=== PATIENT | female | born 1950 | race Caucasian/White ===

== ENCOUNTER → 2017-08-31 | Outpatient (CLI) | payer MEDICARE ==
--- NOTE | 2017-08-31 10:52 | REPMRS ---
Patient History The patient states she has not had a clinical breast exam in over a year. Family history of breast cancer in mother at age 70. Digital Mammo Diagnostic Bilateral: August 31, 2017 - Exam #: [id number] Bilateral CC and MLO view(s) were taken. Technologist: Krystin Cross, Technologist Prior study comparison: July 20, 2016, bilateral digital mammo screening bilat performed at [facility]. December 17, 2014, right breast digital mammo diagnostic unilateral performed at [facility]. FINDINGS: The breast tissue is heterogeneously dense. This may lower the sensitivity of mammography. There has been no change in the appearance of the mammogram from the prior studies. There is a moderate amount of residual fibroglandular tissue which is fairly symmetric. There is no interval development of dominant mass, areas of architectural distortion, or clustered microcalcification typical of malignancy. ASSESSMENT: BI-RADS/ACR category 1 mammogram. Negative. Recommendation Routine screening mammogram in 1 year (for women over age 40). This mammogram was interpreted with the aid of an FDA-approved computer-aided dectection system. Electronically Signed By: Dandre Burton MD 08/31/17 1854
== END ==
LOC: M RAD 10:18
PROVIDERS: ATTEND Family Medicine
DX: Z12.39 Encounter for other screening for malignant neoplasm of breast (principal); N63.0 Unspecified lump in unspecified breast

== ENCOUNTER → 2017-09-18 | Outpatient (CLI) | payer MEDICARE ==
--- NOTE | 2017-09-18 11:26 | REP ---
LEFT KNEE, FIVE VIEWS: HISTORY: Injury. There is no acute fracture or dislocation. There is narrowing of the joint spaces. An osteophyte is present on the patella. A small suprapatellar joint effusion is present. IMPRESSION: Degenerative change as described above. Signed by Angel Luis Suh MD 09/18/2017 11:47 A
== END ==
LOC: M RAD 10:19
PROVIDERS: ATTEND Physician Assistant Medical
DX: M25.562 Pain in left knee (principal); M79.605 Pain in left leg

== ENCOUNTER → 2018-03-16 | Outpatient (REF) | payer MEDICARE | LOC: M LAB REF 14:35 | DX: L82.1 Other seborrheic keratosis (principal) | CPT/HCPCS: 88305 ==

== ENCOUNTER → 2018-04-27 | Outpatient (CLI) | payer MEDICARE ==
[2018-04-27 08:51] LABS: HEMATOCRIT 42.5 % (36.0-47.0); MEAN CORPUSCULAR HEMOGLOBIN 29.9 pg (27.0-33.0); MEAN CORPUSCULAR HGB CONC 32.9 g/dl (32.0-36.5); MEAN CORPUSCULAR VOLUME 90.6 fl (80.0-96.0); PLATELET COUNT, AUTOMATED 249 10^3/uL (150-450); RED BLOOD COUNT 4.69 10^6/uL (4.00-5.40); RED CELL DISTRIBUTION WIDTH 12.8 % (11.5-14.5)
[2018-04-27 09:03] LABS: APPEARANCE, URINE CLEAR (CLEAR); BACTERIA, URINE AUTO NEGATIVE (NEGATIVE); BILIRUBIN, URINE AUTO NEGATIVE (NEGATIVE); BLOOD, URINE BLOOD NEGATIVE (NEGATIVE); COLOR, URINE STRAW (YELLOW); GLUCOSE, URINE (UA) AUTO NEGATIVE (NEGATIVE); KETONE, URINE AUTO NEGATIVE (NEGATIVE); LEUKOCYTE ESTERASE, URINE AUTO NEGATIVE (NEGATIVE); MUCUS, URINE SMALL (NEGATIVE); NITRITE, URINE AUTO NEGATIVE (NEGATIVE); PROTEIN, URINE AUTO NEGATIVE (NEGATIVE); RBC, URINE AUTO 2 /HPF (0-3); SPECIFIC GRAVITY URINE AUTO 1.005 (1.002-1.035); SQUAMOUS EPITHELIAL CELL UR AU 0 /HPF (0-6); UROBILINOGEN, URINE AUTO 0.2 mg/dL (0.0-2.0); WBC, URINE AUTO 1 /HPF (0-3)
[2018-04-27 09:29] LABS: ALBUMIN 3.7 GM/DL (3.2-5.2); ALBUMIN/GLOBULIN RATIO 1.16 (1.00-1.93); ALKALINE PHOSPHATASE 69 U/L (45-117); ALT/SGPT 17 U/L (12-78); ANION GAP 8 MEQ/L (8-16); AST/SGOT 14 U/L (7-37); BILIRUBIN,TOTAL 0.5 MG/DL (0.2-1.0); BLOOD UREA NITROGEN 17 MG/DL (7-18); CALCIUM LEVEL 9.3 MG/DL (8.8-10.2); CARBON DIOXIDE LEVEL 28 MEQ/L (21-32); CHLORIDE LEVEL 108 MEQ/L (98-107); CHOLESTEROL LEVEL 256 MG/DL (<200); CHOLESTEROL RISK RATIO 3.324 (<5); CREATININE FOR GFR 0.86 MG/DL (0.55-1.30); GLOMERULAR FILTRATION RATE > 60.0 (>45); GLUCOSE, FASTING 93 MG/DL (70-100); HDL CHOLESTEROL 77 MG/DL (>40); IRON (FE) 67 UG/DL (50-170); LDL CHOLESTEROL 165.8 MG/DL (<100); NON-HDL-C 179 MG/DL; PERCENT SATURATION 23.9 % (13.2-45.0); POTASSIUM SERUM 4.1 MEQ/L (3.5-5.1); SODIUM LEVEL 144 MEQ/L (136-145); TOTAL IRON BINDING CAPACITY 280 UG/DL (250-450); TOTAL PROTEIN 6.9 GM/DL (6.4-8.2); TRIGLYCERIDES LEVEL 66 MG/DL (<150)
[2018-04-27 12:22] LABS: TOTAL 25(OH) VITAMIN D 46.3 NG/ML (30.0-100.0)
== END ==
LOC: M LAB 08:05
DX: D64.9 Anemia, unspecified (principal); R53.83 Other fatigue; E03.9 Hypothyroidism, unspecified; Z79.899 Other long term (current) drug therapy
CPT/HCPCS: 71046

== ENCOUNTER 2018-10-18 06:34 | Day surgery (SDC) | payer MEDICARE ==
[~2018-10-18] VITALS: Ht 152.4 cm; Wt 53.5 kg
[~2018-10-18 06:34] MED LIST: ASPI81TA21 PO; NS 1,000 ML IV ONE; OSTETAB4 PO; SERT25TA88 PO; VITA400C7 PO; VITAD1000T PO; ZYRT10CA5 PO
--- NOTE | 2018-10-18 08:47 | ROOR ---
Patient Name: Amber Wolf Procedure Date: 10/18/2018 8:25 AM Date of : 1950 Age: 68 Room: [facility] Gender: Female Note Status: Finalized Procedure: Total Colonoscopy to Cecum Indications: Screening for colorectal malignant neoplasm Providers: Shorty Piper MD Referring MD: Fina SHOEMAKER DO Requesting Provider: Medicines: Monitored Anesthesia Care Complications: No immediate complications. Procedure: Pre-Anesthesia Assessment: - The heart rate, respiratory rate, oxygen saturations, blood pressure, adequacy of pulmonary ventilation, and response to care were monitored throughout the procedure. The Colonoscope was introduced through the anus and advanced to the cecum, identified by appendiceal orifice and ileocecal valve. The colonoscopy was performed without difficulty. The patient tolerated the procedure well. The quality of the bowel preparation was excellent. Findings: The perianal and digital rectal examinations were normal. Non-bleeding internal hemorrhoids were found during retroflexion. The hemorrhoids were small and Grade I (internal hemorrhoids that do not prolapse). No other significant abnormalities were identified in a careful examination of the remainder of the colon. The exam was otherwise without abnormality on direct and retroflexion views. Impression: - Non-bleeding internal hemorrhoids. - The examination was otherwise normal on direct and retroflexion views. - No specimens collected. - The exam was otherwise normal to the cecum. Recommendation: - Patient has a contact number available for emergencies. The signs and symptoms of potential delayed complications were discussed with the patient. Return to normal activities tomorrow. Written discharge instructions were provided to the patient. - High fiber diet. - Discharge patient to home. - Continue present medications. - Repeat colonoscopy for symptoms only. - Return to referring physician. - The findings and recommendations were discussed with the patient's family. Shorty Piper MD Shorty Piper MD 10/18/2018 8:47:24 AM This report has been signed electronically. Number of Addenda: 0 Note Initiated On: 10/18/2018 8:25 AM Estimated Blood Loss: Estimated blood loss: none.
[2018-10-18] MEDS ORDERED: LIDOCAINE 2% INJ 100 MG/5 ML SDV (FOR ANES.) As Ordered ONE (08:53)
[2018-10-18] MEDS ORDERED: PROPOFOL 200 MG/20 ML VIAL As Ordered ONE (08:53)
[2018-10-18 09:22] VITALS: BP 132/85
== END 2018-10-18 09:24 | disposition home or self-care (01) ==
LOC: M OPP 06:34
PROVIDERS: ATTEND Internal Medicine Gastroenterology
DX: Z12.11 Encounter for screening for malignant neoplasm of colon (principal); K64.8 Other hemorrhoids; Z79.82 Long term (current) use of aspirin; Z79.899 Other long term (current) drug therapy; J30.1 Allergic rhinitis due to pollen; J30.2 Other seasonal allergic rhinitis; Z88.8 Allergy status to other drugs, medicaments and biological substances

== ENCOUNTER → 2018-11-15 | Outpatient (CLI) | payer MEDICARE ==
[~2018-11-15] MED LIST changes: -NS 1,000 ML IV ONE
--- NOTE | 2018-11-15 11:54 | REPMRS ---
Patient History The patient states she has not had a clinical breast exam in over a year. Family history of breast cancer at age 70 in mother. Right breast bx w/benign results 3D TOMOSYNTHESIS WAS PERFORMED. Digital Mammo Screening Bilat: November 15, 2018 - Exam #: [id number] Bilateral CC and MLO view(s) were taken. Technologist: Krystin Cross Technologist Prior study comparison: August 31, 2017, digital mammo diagnostic bilateral performed at [facility]. July 20, 2016, bilateral digital mammo screening bilat performed at [facility]. FINDINGS: The breast tissue is heterogeneously dense. This may lower the sensitivity of mammography. There has been no change in the appearance of the mammogram from the prior studies. There is a moderate amount of residual fibroglandular tissue which is fairly symmetric. There is no interval development of dominant mass, areas of architectural distortion, or clustered microcalcification typical of malignancy. Assessment: BI-RADS/ACR category 1 mammogram. Negative Mammogram. Recommendation Routine screening mammogram in 1 year (for women over age 40). This mammogram was interpreted with the aid of an FDA-approved computer-aided dectection system. Electronically Signed By: Dandre Burton MD 11/15/18 [id number]
== END ==
LOC: M RAD 10:31
PROVIDERS: ATTEND Physician Assistant
DX: Z12.31 Encounter for screening mammogram for malignant neoplasm of breast (principal); Z80.3 Family history of malignant neoplasm of breast; N60.31 Fibrosclerosis of right breast; N60.32 Fibrosclerosis of left breast

== ENCOUNTER → 2018-12-06 | Outpatient (CLI) | payer MEDICARE ==
[2018-12-06 14:46] LABS: BASO # 0.1 10^3/uL (0.0-0.2); BASO % 1.1 % (0.0-1.0); EOS # 0.3 10^3/uL (0.0-0.50); EOS % 4.2 % (0.0-3.0); HEMATOCRIT 39.6 % (36.0-47.0); HEMOGLOBIN 12.7 g/dl (12.0-15.5); LYMPH # 1.7 10^3/uL (1.5-4.5); LYMPH % 28.4 % (24.0-44.0); MEAN CORPUSCULAR HEMOGLOBIN 29.1 pg (27.0-33.0); MEAN CORPUSCULAR HGB CONC 32.1 g/dl (32.0-36.5); MEAN CORPUSCULAR VOLUME 90.8 fl (80.0-96.0); MONO # 0.5 10^3/uL (0.0-0.8); MONO % 8.7 % (0.0-5.0); NEUTROPHILS # 3.5 10^3/uL (1.8-7.7); NEUTROPHILS % 57.3 % (36.0-66.0); PLATELET COUNT, AUTOMATED 256 10^3/uL (150-450); RED BLOOD COUNT 4.36 10^6/uL (4.00-5.40); WHITE BLOOD COUNT 6.1 10^3/uL (4.0-10.0)
--- NOTE | 2018-12-06 15:00 | REP ---
RIGHT HAND, FOUR VIEWS: HISTORY: Pain. There is no acute fracture or dislocation. The joint spaces are normal in appearance. IMPRESSION: There is no acute fracture or dislocation. Electronically Signed by Angel Luis Suh MD 12/06/2018 03:03 P
[2018-12-06 15:32] LABS: ALBUMIN 3.6 GM/DL (3.2-5.2); ALT/SGPT 17 U/L (12-78); BILIRUBIN,TOTAL 0.3 MG/DL (0.2-1.0); BLOOD UREA NITROGEN 16 MG/DL (7-18); CALCIUM LEVEL 8.5 MG/DL (8.8-10.2); CARBON DIOXIDE LEVEL 30 MEQ/L (21-32); CHLORIDE LEVEL 108 MEQ/L (98-107); CREATININE FOR GFR 0.73 MG/DL (0.55-1.30); GLOMERULAR FILTRATION RATE > 60.0 (>39); GLUCOSE, FASTING 97 MG/DL (70-100); POTASSIUM SERUM 4.1 MEQ/L (3.5-5.1); SODIUM LEVEL 145 MEQ/L (136-145); TOTAL 25(OH) VITAMIN D 38.2 NG/ML (30.0-100.0); TOTAL PROTEIN 6.2 GM/DL (6.4-8.2); VITAMIN B12 LEVEL 326 PG/ML
[2018-12-06 15:33] LABS: FOLATE 16.9 NG/ML
== END ==
LOC: M LAB 13:57
PROVIDERS: ATTEND Family Medicine
DX: G31.84 Mild cognitive impairment of uncertain or unknown etiology (principal); F41.1 Generalized anxiety disorder; M25.541 Pain in joints of right hand

== ENCOUNTER → 2019-02-06 | Outpatient (CLI) | payer MEDICARE ==
--- NOTE | 2019-02-06 09:24 | REP ---
CHEST, TWO VIEWS: Two views of the chest were performed and compared with prior study of 04/27/2018. There is no acute infiltrate. Heart is normal in size. Mediastinal silhouette is unchanged. There are degenerative changes of the spine. IMPRESSION: No acute pulmonary disease. Electronically Signed by Dandre Burton MD 02/07/2019 10:07 A
== END ==
LOC: M WUC 08:33
PROVIDERS: ATTEND Physician Assistant
DX: R05 Cough (principal)

== ENCOUNTER → 2019-08-13 | Outpatient (CLI) | payer MEDICARE ==
[~2019-08-13] MED LIST changes: +CHOL100029 PO; +SERT25TA21 PO; -SERT25TA88 PO; -VITAD1000T PO
--- NOTE | 2019-08-13 14:21 | REP ---
MRI brain: 08/13/2019. Indication: Dementia. Comparison: None. Technique: Multiplanar short and long TR sequences of the brain were performed without IV Gadolinium. Findings: There are no areas of restricted diffusion. There is no intracranial mass effect, hydrocephalus or significant hemorrhage. There are scattered foci of elevated T2 prolongation throughout the white matter including the brainstem most consistent with sequelae of chronic small vessel disease. The midline structures, and craniocervical junction are unremarkable. The large intracranial flow voids are present and unremarkable as well. Impression: No acute intracranial process. Nonspecific abnormal white matter signal likely representing sequelae of chronic microangiopathic ischemic disease. Electronically Signed by Javier Meneses DO 08/13/2019 02:13 P
== END ==
LOC: M RAD 12:49
PROVIDERS: ATTEND Physician Assistant
DX: I67.82 Cerebral ischemia (principal); F02.81 Dementia in other diseases classified elsewhere, unspecified severity, with behavioral disturbance

== ENCOUNTER 2019-09-17 16:07 | Inpatient (IN) | payer MEDICARE ==
[~2019-09-17] VITALS: Ht 154.9 cm; Wt 59.1 kg
[2019-09-17 16:45] LABS: HEMATOCRIT 45.1 % (36.0-47.0); HEMOGLOBIN 14.5 g/dl (12.0-15.5); MEAN CORPUSCULAR HEMOGLOBIN 29.9 pg (27.0-33.0); MEAN CORPUSCULAR HGB CONC 32.2 g/dl (32.0-36.5); PLATELET COUNT, AUTOMATED 209 10^3/uL (150-450); RED BLOOD COUNT 4.85 10^6/uL (4.00-5.40); WHITE BLOOD COUNT 4.3 10^3/uL (4.0-10.0)
[2019-09-17 17:05] LABS: AMPHETAMINES LEVEL URINE NEGATIVE (NEGATIVE); BARBITURATES URINE NEGATIVE (NEGATIVE); BENZODIAZEPINES URINE NEGATIVE (NEGATIVE); CANNABINOIDS URINE NEGATIVE (NEGATIVE); COCAINE METABOLITE URINE NEGATIVE (NEGATIVE); METHADONE URINE NEGATIVE (NEGATIVE); OPIATES URINE NEGATIVE (NEGATIVE); PHENCYCLIDINE URINE NEGATIVE (NEGATIVE)
[2019-09-17 17:21] LABS: ACETAMINOPHEN LEVEL < 2.0 UG/ML (10.0-30.0); ALBUMIN 4.1 GM/DL (3.2-5.2); ALT/SGPT 18 U/L (12-78); BILIRUBIN,DIRECT 0.1 MG/DL (0.0-0.2); BILIRUBIN,TOTAL 0.4 MG/DL (0.2-1.0); BLOOD UREA NITROGEN 13 MG/DL (7-18); CALCIUM LEVEL 9.2 MG/DL (8.8-10.2); CARBON DIOXIDE LEVEL 26 MEQ/L (21-32); CHLORIDE LEVEL 110 MEQ/L (98-107); CREATININE FOR GFR 0.93 MG/DL (0.55-1.30); ETHYL ALCOHOL (ETHANOL) < 0.003 % (0.000-0.010); GLOMERULAR FILTRATION RATE > 60.0 (>39); GLUCOSE, FASTING 85 MG/DL (70-100); POTASSIUM SERUM 4.3 MEQ/L (3.5-5.1); SALICYLATE LEVEL < 1.7 MG/DL (5.0-30.0); SODIUM LEVEL 143 MEQ/L (136-145); TOTAL PROTEIN 7.3 GM/DL (6.4-8.2)
[2019-09-17] MEDS ORDERED: QUET1TAB7 PO (19:29)
[2019-09-17] MEDS ORDERED: AZEL0.1S NARES (19:29)
[2019-09-17] MEDS ORDERED: SERT50TA29 PO (19:29)
[2019-09-17] MEDS ORDERED: MOM 30ML SUSPENSION UDC PO PRN (22:15)
[2019-09-17] MEDS ORDERED: ACETAMINOPHEN TAB 650MG DOSE (2X325MG) PO PRN (22:15)
[2019-09-17] MEDS ORDERED: MAALOX 30 ML SUSP *UDC PO PRN (22:15)
[2019-09-17 23:23] VITALS: BP 155/75
[2019-09-18 06:23] VITALS: BP 138/60
[2019-09-18] MEDS ORDERED: FLUBLOK(EGG FREE)(QUAD)INFLUENZA VACC 0.5ML SYRINGE (90682)18YRS&OLDER IM ONE (09:00)
[2019-09-18] MEDS: AZELASTINE 137MCG NASAL SPY 30 ML (ASTELIN) SCH (09:07)
[2019-09-18] MEDS: SERTRALINE HCL 50 MG TAB PO SCH (09:07)
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
[2019-09-18 17:07] VITALS: BP 157/67
--- NOTE | 2019-09-18 19:21 | CR.PDOC ---
General Date of Consultation: Sep 18, 2019 Consultation REASON FOR CONSULTATION/CHIEF COMPLAINT: Physical examination HISTORY OF PRESENT ILLNESS: Patient is 69 years old female with past mental history significant for depression, hyperlipidemia presented hospital with paranoid ideation. During my examination she denies fever, chills, nausea, vomiting, shortness of breath, palpitations, diarrhea or dysuria. ALLERGIES: Please see below. HOME MEDICATIONS: Please see below. PAST MEDICAL HISTORY: History of depression, hyperlipidemia PAST SURGICAL HISTORY: Hysterectomy FAMILY HISTORY: Father: Father had depression Mother: Mother from leukemia SOCIAL HISTORY: Tobacco use: Denied ETOH: Denied Illicit drug use: Denied IV drug use: Denied PHYSICAL EXAMINATION: VITAL SIGNS: Please see below. GENERAL APPEARANCE: NAD HEENT: PERRLA, EOMI RESPIRATORY: CTA CARDIOVASCULAR: S1-S2 ABDOMEN: Nontender nondistended EXTREMITIES: No swelling NEUROLOGICAL: Cranial nerves from 2-12 intact LABORATORY DATA: Please see below. ASSESSMENT/PLAN: Patient does not have any acute diseases besides of her psychiatric illness. I will follow patient per request Vital Signs/I&O Vital Signs Date Time Temp Pulse Resp B/P (MAP) Pulse Ox O2 Delivery O2 Flow Rate FiO2 09/18/19 17:07 98.9 67 16 157/67 (97) 09/18/19 06:23 Room Air 09/17/19 23:23 98 Allergies Coded Allergies: ENVIROMENTAL (Verified Adverse Reaction, Unknown, 09/17/19) ibandronate sodium (Verified Adverse Reaction, Unknown, BODY ACHES, 09/17/19) Home Medications Scheduled Azelastine HCl (Azelastine HCl) 0.1% [place].pump, 2 SPRAY NARES DAILY, (Reported) Quetiapine Fumarate (Quetiapine Fumarate) 25 Mg Tablet, 12.5 MG PO QHS, (Reported) Sertraline HCl (Sertraline HCl) 50 Mg Tablet, 50 MG PO DAILY, (Reported) MERLYN PATEL DO Sep 18, 2019 19:21
[2019-09-18] MEDS: risperiDONE 1 MG TAB PO SCH (20:10)
[2019-09-18] MEDS ORDERED: QUEtiapine FUMARATE 12.5 MG HALF-TAB PO SCH (21:00)
[2019-09-19 06:06] VITALS: BP 148/70
[2019-09-19] MEDS: SERTRALINE HCL 50 MG TAB PO SCH (08:43)
[2019-09-19] MEDS: AZELASTINE 137MCG NASAL SPY 30 ML (ASTELIN) SCH (08:44)
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
[2019-09-19 18:15] VITALS: BP 117/63
[2019-09-19] MEDS: risperiDONE 1 MG TAB PO SCH (20:35)
[2019-09-20 06:11] VITALS: BP 130/84
[2019-09-20] MEDS: AZELASTINE 137MCG NASAL SPY 30 ML (ASTELIN) SCH (09:00)
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
[2019-09-20] MEDS: SERTRALINE HCL 50 MG TAB PO SCH (10:03)
[2019-09-20 18:00] VITALS: BP 150/66
[2019-09-20] MEDS: risperiDONE 1 MG TAB PO SCH (20:30)
[2019-09-21 05:59] VITALS: BP 132/70
[2019-09-21] MEDS: SERTRALINE HCL 50 MG TAB PO SCH (09:24)
[2019-09-21] MEDS: AZELASTINE 137MCG NASAL SPY 30 ML (ASTELIN) SCH (09:24)
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
[2019-09-21 15:58] VITALS: BP 140/89
[2019-09-21] MEDS: risperiDONE 2 MG TAB PO SCH (20:01)
[2019-09-22 06:50] VITALS: BP 156/85
[2019-09-22] MEDS: AZELASTINE 137MCG NASAL SPY 30 ML (ASTELIN) SCH (09:05)
[2019-09-22] MEDS: SERTRALINE HCL 50 MG TAB PO SCH (09:05)
[2019-09-22 15:32] VITALS: BP 149/73
[2019-09-22] MEDS: traZODone 50 MG TAB PO SCH (20:22)
[2019-09-22] MEDS: risperiDONE 2 MG TAB PO SCH (20:22)
[2019-09-23 06:05] VITALS: BP 133/63
[2019-09-23] MEDS: AZELASTINE 137MCG NASAL SPY 30 ML (ASTELIN) SCH (09:02)
[2019-09-23] MEDS: SERTRALINE HCL 50 MG TAB PO SCH (09:02)
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
[2019-09-23 15:35] VITALS: BP 146/67
[2019-09-23] MEDS: risperiDONE 2 MG TAB PO SCH (21:04)
[2019-09-23] MEDS: traZODone 50 MG TAB PO SCH (23:20)
[2019-09-24 06:44] VITALS: BP 141/80
[2019-09-24] MEDS: SERTRALINE HCL 50 MG TAB PO SCH (08:29)
[2019-09-24] MEDS: AZELASTINE 137MCG NASAL SPY 30 ML (ASTELIN) SCH (08:29)
[2019-09-24 16:08] VITALS: BP 120/70
[2019-09-24] MEDS: risperiDONE 2 MG TAB PO SCH (20:06)
[2019-09-24] MEDS: traZODone 50 MG TAB PO SCH (20:07)
[2019-09-25 06:29] VITALS: BP 118/60
[2019-09-25] MEDS: AZELASTINE 137MCG NASAL SPY 30 ML (ASTELIN) SCH (08:36)
[2019-09-25] MEDS: SERTRALINE HCL 50 MG TAB PO SCH (08:36)
[2019-09-25] MEDS ORDERED: RISP2TAB32 PO (08:41)
[2019-09-25] MEDS ORDERED: TRAZ-252 PO (08:41)
[2019-09-25] MEDS ORDERED: SERT50TA29 PO (08:41)
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
[2019-09-25 16:25] VITALS: BP 137/64
[2019-09-25] MEDS: risperiDONE 3 MG TAB PO SCH (20:16)
[2019-09-25] MEDS: traZODone 50 MG TAB PO SCH (20:16)
[2019-09-26 06:22] VITALS: BP 136/69
[2019-09-26] MEDS: AZELASTINE 137MCG NASAL SPY 30 ML (ASTELIN) SCH (08:22)
[2019-09-26] MEDS: SERTRALINE HCL 50 MG TAB PO SCH (08:22)
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
[2019-09-26 16:14] VITALS: BP 112/59
[2019-09-26] MEDS: risperiDONE 3 MG TAB PO SCH (20:11)
[2019-09-26] MEDS: traZODone 50 MG TAB PO SCH (20:11)
[2019-09-27 06:42] VITALS: BP 150/70
[2019-09-27] MEDS ORDERED: RISP3TAB20 PO (08:30)
[2019-09-27] MEDS: AZELASTINE 137MCG NASAL SPY 30 ML (ASTELIN) SCH (08:39)
[2019-09-27] MEDS: SERTRALINE HCL 50 MG TAB PO SCH (08:39)
== END 2019-09-27 12:35 | disposition home or self-care (01) | DRG 885 ==
LOC: M ED 16:07 → M ED INP 22:08 → M PSY 22:42
PROVIDERS: ADMIT Psychiatry & Neurology Psychiatry; ATTEND Psychiatry & Neurology Psychiatry
DX: F32.2 Major depressive disorder, single episode, severe without psychotic features (principal); Z79.899 Other long term (current) drug therapy; Z88.8 Allergy status to other drugs, medicaments and biological substances

== ENCOUNTER → 2019-11-21 | Outpatient (CLI) | payer MEDICARE ==
[~2019-11-21] MED LIST changes: +AZEL0.1S NARES; +QUET1TAB7 PO; +RISP2TAB32 PO; +RISP3TAB20 PO; +SERT50TA29 PO; +TRAZ-252 PO
--- NOTE | 2019-11-21 12:46 | REP ---
BILATERAL SCREENING DIGITAL MAMMOGRAM WITH 3D TOMOSYNTHESIS: There are no palpable abnormalities or other breast complaints. The the patient states she has not had a clinical breast examination in over a year. The [facility] Lifetime Breast Cancer Risk Score is: 7.8% . Comparison is 07/20/2016. The breasts are heterogeneously dense, which could obscure small masses. There is no dominant mass, micro calcific cluster or architectural distortion that would indicate malignancy. There are benign calcifications. There are no additional findings on 3D tomosynthesiss. There is no change from the prior study. Impression: BIRADS/ACR category II mammogram. Benign findings. Recommendation: Routine annual screening mammography. Because of the increased breast density, annual adjunctive breast MRI in addition to screening mammography is recommended. These can be performed at alternating six month intervals. This mammogram was interpreted with the aid of a FDA approved computer-aided detection system. A. Negative mammogram reports should not delay biopsy if a dominant or clinically suspicious mass is present. B. Not all breast cancers are identified by mammography or tomosynthesis. C. Adenosis and dense breasts may obscure an underlying neoplasm. Patient letter M1 dense breasts. Electronically Signed by Dandre Salazar MD 11/21/2019 12:38 P
== END ==
LOC: M RAD 09:43
PROVIDERS: ATTEND Family Medicine
DX: Z12.31 Encounter for screening mammogram for malignant neoplasm of breast (principal); R92.1 Mammographic calcification found on diagnostic imaging of breast

== ENCOUNTER → 2019-12-12 | Outpatient (REF) | payer MEDICARE ==
[2019-12-12 15:42] LABS: BASO # 0.1 10^3/uL (0.0-0.2); BASO % 1.3 % (0.0-1.0); EOS # 0.1 10^3/uL (0.0-0.5); EOS % 2.1 % (0.0-3.0); HEMATOCRIT 40.8 % (36.0-47.0); HEMOGLOBIN 13.5 g/dl (12.0-15.5); LYMPH # 1.4 10^3/uL (1.5-5.0); LYMPH % 28.6 % (24.0-44.0); MEAN CORPUSCULAR HEMOGLOBIN 30.2 pg (27.0-33.0); MEAN CORPUSCULAR HGB CONC 33.1 g/dl (32.0-36.5); MEAN CORPUSCULAR VOLUME 91.3 fl (80.0-96.0); MONO # 0.4 10^3/uL (0.0-0.8); MONO % 7.6 % (0.0-5.0); NEUTROPHILS # 2.9 10^3/uL (1.5-8.5); NEUTROPHILS % 60.4 % (36.0-66.0); PLATELET COUNT, AUTOMATED 197 10^3/uL (150-450); RED BLOOD COUNT 4.47 10^6/uL (4.00-5.40); WHITE BLOOD COUNT 4.7 10^3/uL (4.0-10.0)
[2019-12-12 16:15] LABS: ALBUMIN 4.1 GM/DL (3.2-5.2); BILIRUBIN,TOTAL 0.4 MG/DL (0.2-1.0); CHOLESTEROL RISK RATIO 3.045 (<5); CREATININE FOR GFR 0.99 MG/DL (0.55-1.30); GLOMERULAR FILTRATION RATE 58.9 (>39); POTASSIUM SERUM 4.1 MEQ/L (3.5-5.1); TOTAL PROTEIN 6.8 GM/DL (6.4-8.2)
== END ==
LOC: M LABDRAW1 14:06
PROVIDERS: ATTEND Physician Assistant
DX: E78.00 Pure hypercholesterolemia, unspecified (principal); E53.9 Vitamin B deficiency, unspecified

== ENCOUNTER → 2020-02-25 | Outpatient (CLI) | payer MEDICARE ==
[2020-02-25 12:04] LABS: ALBUMIN 3.7 GM/DL (3.2-5.2); ALT/SGPT 18 U/L (12-78); BILIRUBIN,TOTAL 0.3 MG/DL (0.2-1.0); BLOOD UREA NITROGEN 22 MG/DL (7-18); CALCIUM LEVEL 8.7 MG/DL (8.8-10.2); CARBON DIOXIDE LEVEL 27 MEQ/L (21-32); CHLORIDE LEVEL 108 MEQ/L (98-107); CHOLESTEROL LEVEL 198 MG/DL (<200); CHOLESTEROL RISK RATIO 2.357 (<5); GLOMERULAR FILTRATION RATE > 60.0 (>39); GLUCOSE, FASTING 69 MG/DL (70-100); HDL CHOLESTEROL 84 MG/DL (>40); LDL CHOLESTEROL 99 MG/DL (<100); NON-HDL-C 114 MG/DL; POTASSIUM SERUM 4.4 MEQ/L (3.5-5.1); SODIUM LEVEL 142 MEQ/L (136-145); TOTAL PROTEIN 6.4 GM/DL (6.4-8.2); TRIGLYCERIDES LEVEL 77 MG/DL (<150)
[2020-02-25 14:09] LABS: HEMOGLOBIN A1c 5.3 %
== END ==
LOC: M WUC 09:43
PROVIDERS: ATTEND Physician Assistant
DX: E78.00 Pure hypercholesterolemia, unspecified (principal); R73.01 Impaired fasting glucose

== ENCOUNTER → 2020-03-26 | Outpatient (CLI) | payer MEDICARE | LOC: M LABSMTC 10:47 | PROVIDERS: ATTEND Pediatrics | DX: Z03.818 Encounter for observation for suspected exposure to other biological agents ruled out (principal); Z11.59 Encounter for screening for other viral diseases ==

== ENCOUNTER → 2020-06-30 | Outpatient (CLI) | payer SELFPAY | LOC: M LABSMTC 11:03 | PROVIDERS: ATTEND Pediatrics | DX: Z20.828 Contact with and (suspected) exposure to other viral communicable diseases (principal) ==

== ENCOUNTER → 2020-08-11 | Outpatient (CLI) | payer SELFPAY | LOC: M LABSMTC 13:36 | PROVIDERS: ATTEND Pediatrics | DX: Z20.828 Contact with and (suspected) exposure to other viral communicable diseases (principal) ==

== ENCOUNTER → 2020-09-09 | Outpatient (CLI) | payer MEDICARE ==
[2020-09-09 10:52] LABS: EOS # 0.1 10^3/uL (0.0-0.5); EOS % 2.2 % (0.0-3.0); HEMATOCRIT 41.2 % (36.0-47.0); HEMOGLOBIN 13.3 g/dl (12.0-15.5); LYMPH # 1.1 10^3/uL (1.5-5.0); LYMPH % 26.2 % (24.0-44.0); MEAN CORPUSCULAR HEMOGLOBIN 29.6 pg (27.0-33.0); MEAN CORPUSCULAR HGB CONC 32.3 g/dl (32.0-36.5); MEAN CORPUSCULAR VOLUME 91.6 fl (80.0-96.0); MONO # 0.4 10^3/uL (0.0-0.8); MONO % 10.3 % (0.0-5.0); NEUTROPHILS # 2.5 10^3/uL (1.5-8.5); NEUTROPHILS % 60.1 % (36.0-66.0); PLATELET COUNT, AUTOMATED 220 10^3/uL (150-450); WHITE BLOOD COUNT 4.1 10^3/uL (4.0-10.0)
[2020-09-09 11:24] LABS: ALBUMIN 3.7 GM/DL (3.2-5.2); ALT/SGPT 13 U/L (12-78); BILIRUBIN,TOTAL 0.4 MG/DL (0.2-1.0); BLOOD UREA NITROGEN 16 MG/DL (7-18); CARBON DIOXIDE LEVEL 31 MEQ/L (21-32); CHLORIDE LEVEL 108 MEQ/L (98-107); CHOLESTEROL LEVEL 212 MG/DL (<200); CHOLESTEROL RISK RATIO 2.523 (<5); CREATININE FOR GFR 0.97 MG/DL (0.55-1.30); GLOMERULAR FILTRATION RATE > 60.0 (>39); GLUCOSE, FASTING 87 MG/DL (70-100); HDL CHOLESTEROL 84 MG/DL (>40); LDL CHOLESTEROL 116 MG/DL (<100); NON-HDL-C 128 MG/DL; POTASSIUM SERUM 4.3 MEQ/L (3.5-5.1); SODIUM LEVEL 144 MEQ/L (136-145); TOTAL PROTEIN 6.3 GM/DL (6.4-8.2); TRIGLYCERIDES LEVEL 58 MG/DL (<150)
[2020-09-09 11:25] LABS: HEMOGLOBIN A1c 5.2 %
== END ==
LOC: M WUC 08:12
PROVIDERS: ATTEND Physician Assistant
DX: E78.00 Pure hypercholesterolemia, unspecified (principal); R73.01 Impaired fasting glucose

== ENCOUNTER → 2020-11-24 | Outpatient (CLI) | payer MEDICARE ==
[~2020-11-24] MED LIST changes: -QUET1TAB7 PO; +QUET25TA3 PO
--- NOTE | 2020-11-24 16:16 | REPMRS ---
Patient History The patient states she has not had a clinical breast exam in over a year. Family history of breast cancer at age 70 in mother. Digital Woman Screen Mammo: November 24, 2020 - Exam #: [id number] Bilateral CC and MLO view(s) were taken. Technologist: RT Ruiz Prior study comparison: November 21, 2019, bilateral digital mammo screening bilat, performed at [facility]. November 15, 2018, bilateral digital mammo screening bilat, performed at [facility]. August 31, 2017, digital mammo diagnostic bilateral, performed at [facility]. FINDINGS: The breast tissue is heterogeneously dense. This may lower the sensitivity of mammography. The [facility] volumetric breast density category is: C. There are benign secretory calcifications bilaterally again noted. There is a moderate amount of heterogeneously dense fibroglandular tissue which is fairly symmetric. There is no interval development of dominant mass, architectural distortion, or grouped microcalcification typical of malignancy. There has been no change in the appearance of the mammogram from the prior studies. 3-D tomosynthesis shows no additional findings. Assessment: BI-RADS/ACR category 2 mammogram. Benign Findings. Recommendation Routine screening mammogram of both breasts in 1 year (for women over age 40). This patient's [facility] Lifetime Breast Cancer RIsk is estimated at 7.3 %. This mammogram was interpreted with the aid of an FDA-approved computer-aided dectection system. Electronically Signed By: Raheel Marcos MD 11/24/20 [id number]
== END ==
LOC: M WHC 15:07
PROVIDERS: ATTEND Family Medicine
DX: Z12.31 Encounter for screening mammogram for malignant neoplasm of breast (principal)

== ENCOUNTER → 2021-05-11 | Outpatient (CLI) | payer MEDICARE ==
[2021-05-11 12:01] LABS: BASO % 0.9 % (0.0-1.0); EOS # 0.1 10^3/uL (0.0-0.5); EOS % 2.4 % (0.0-3.0); HEMATOCRIT 40.8 % (36.0-47.0); HEMOGLOBIN 13.4 g/dl (12.0-15.5); LYMPH # 1.4 10^3/uL (1.5-5.0); LYMPH % 30.9 % (24.0-44.0); MEAN CORPUSCULAR HEMOGLOBIN 29.7 pg (27.0-33.0); MEAN CORPUSCULAR HGB CONC 32.8 g/dl (32.0-36.5); MEAN CORPUSCULAR VOLUME 90.5 fl (80.0-96.0); MONO # 0.4 10^3/uL (0.0-0.8); NEUTROPHILS # 2.6 10^3/uL (1.5-8.5); NEUTROPHILS % 56.6 % (36.0-66.0); PLATELET COUNT, AUTOMATED 203 10^3/uL (150-450); RED BLOOD COUNT 4.51 10^6/uL (4.00-5.40); WHITE BLOOD COUNT 4.7 10^3/uL (4.0-10.0)
[2021-05-11 12:36] LABS: ALBUMIN 3.7 GM/DL (3.2-5.2); ALT/SGPT 16 U/L (12-78); BILIRUBIN,TOTAL 0.4 MG/DL (0.2-1.0); BLOOD UREA NITROGEN 14 MG/DL (7-18); CALCIUM LEVEL 8.4 MG/DL (8.8-10.2); CARBON DIOXIDE LEVEL 29 MEQ/L (21-32); CHLORIDE LEVEL 111 MEQ/L (98-107); CHOLESTEROL LEVEL 240 MG/DL (<200); CHOLESTEROL RISK RATIO 3.116 (<5); CREATININE FOR GFR 0.89 MG/DL (0.55-1.30); GLOMERULAR FILTRATION RATE > 60.0 (>39); GLUCOSE, FASTING 88 MG/DL (70-100); HDL CHOLESTEROL 77 MG/DL (>40); LDL CHOLESTEROL 149 MG/DL (<100); NON-HDL-C 163 MG/DL; POTASSIUM SERUM 3.9 MEQ/L (3.5-5.1); SODIUM LEVEL 143 MEQ/L (136-145); TOTAL PROTEIN 6.4 GM/DL (6.4-8.2); TRIGLYCERIDES LEVEL 71 MG/DL (<150)
== END ==
LOC: M WUC 08:51
PROVIDERS: ATTEND Physician Assistant
DX: Z13.220 Encounter for screening for lipoid disorders (principal)

== ENCOUNTER → 2021-11-25 | Outpatient (CLI) | payer MEDICARE ==
[~2021-11-25] MED LIST changes: +QUET1TAB17 PO; -QUET25TA3 PO
== END ==
LOC: M WHC 15:12
PROVIDERS: ATTEND Obstetrics & Gynecology
DX: Z12.31 Encounter for screening mammogram for malignant neoplasm of breast (principal); R92.1 Mammographic calcification found on diagnostic imaging of breast

== ENCOUNTER → 2023-01-04 | Outpatient (CLI) | payer MEDICARE | LOC: M WHC 14:44 | PROVIDERS: ATTEND Family Medicine | DX: Z12.31 Encounter for screening mammogram for malignant neoplasm of breast (principal) ==

== ENCOUNTER → 2023-03-17 | Outpatient (CLI) | payer MEDICARE | LOC: M WUC 10:17 | PROVIDERS: ATTEND Nurse Practitioner Family | DX: M25.561 Pain in right knee (principal) ==

== ENCOUNTER → 2023-04-05 | Outpatient (CLI) | payer MEDICARE | LOC: M PLAIMG 11:01 | PROVIDERS: ATTEND Family Medicine | DX: M25.561 Pain in right knee (principal); M17.12 Unilateral primary osteoarthritis, left knee ==

== ENCOUNTER → 2023-06-01 | Outpatient (CLI) | payer MEDICARE ==
[2023-06-01 16:17] LABS: BASO % 0.7 % (0.0-1.0); EOS # 0.1 10^3/uL (0.0-0.5); EOS % 2.1 % (0.0-3.0); HEMATOCRIT 39.3 % (36.0-47.0); HEMOGLOBIN 12.9 g/dl (12.0-15.5); LYMPH # 1.8 10^3/uL (1.5-5.0); MEAN CORPUSCULAR HEMOGLOBIN 30.1 pg (27.0-33.0); MEAN CORPUSCULAR HGB CONC 32.8 g/dl (32.0-36.5); MEAN CORPUSCULAR VOLUME 91.6 fl (80.0-96.0); MONO # 0.5 10^3/uL (0.0-0.8); MONO % 9.1 % (2.0-8.0); NEUTROPHILS # 3.3 10^3/uL (1.5-8.5); NEUTROPHILS % 56.9 % (36.0-66.0); PLATELET COUNT, AUTOMATED 215 10^3/uL (150-450); RED BLOOD COUNT 4.29 10^6/uL (4.00-5.40); WHITE BLOOD COUNT 5.8 10^3/uL (4.0-10.0)
[2023-06-01 16:50] LABS: ALBUMIN 4.1 G/DL (3.2-5.2); BILIRUBIN,TOTAL 0.7 MG/DL (0.3-1.2); CALCIUM LEVEL 9.7 MG/DL (8.3-10.6); CHOLESTEROL RISK RATIO 2.99 (<5); CREATININE FOR GFR 1.1 MG/DL (0.55-1.30); FREE T4 0.96 NG/DL (0.89-1.76); GLOMERULAR FILTRATION RATE 51.5 (>39); HDL CHOLESTEROL 69.5 MG/DL (>40); LDL CHOLESTEROL 115.3 MG/DL (<100); NON-HDL-C 138.5 MG/DL; POTASSIUM SERUM 4.4 MMOL/L (3.5-5.1); THYROID STIMULATING HORMONE 3.326 uIU/ML (0.55-4.78); TOTAL 25(OH) VITAMIN D 34.5 NG/ML (20.0-100.0); TOTAL PROTEIN 6.8 G/DL (5.7-8.2)
== END ==
LOC: M LAB 15:49
PROVIDERS: ATTEND Family Medicine
DX: E78.00 Pure hypercholesterolemia, unspecified (principal); I10 Essential (primary) hypertension; E55.9 Vitamin D deficiency, unspecified; Z79.899 Other long term (current) drug therapy

== ENCOUNTER → 2023-09-11 | Outpatient (REF) | payer MEDICARE | LOC: M LAB REF 19:07 | PROVIDERS: ATTEND Physician Assistant Medical | DX: B34.9 Viral infection, unspecified (principal) ==

== ENCOUNTER → 2024-01-10 | Outpatient (CLI) | payer MEDICARE | LOC: M WHC 09:41 | PROVIDERS: ATTEND Physician Assistant | DX: Z12.31 Encounter for screening mammogram for malignant neoplasm of breast (principal); R92.1 Mammographic calcification found on diagnostic imaging of breast; R92.333 Mammographic heterogeneous density, bilateral breasts ==

== ENCOUNTER → 2024-07-31 | Outpatient (CLI) | payer MEDICARE ==
[2024-07-31 15:15] LABS: BASO % 0.6 % (0.0-1.0); EOS # 0.1 10^3/uL (0.0-0.5); EOS % 1.9 % (0.0-3.0); HEMATOCRIT 40.3 % (36.0-47.0); HEMOGLOBIN 13.4 g/dl (12.0-15.5); LYMPH # 1.4 10^3/uL (1.5-5.0); LYMPH % 22.3 % (24.0-44.0); MEAN CORPUSCULAR HEMOGLOBIN 30.5 pg (27.0-33.0); MEAN CORPUSCULAR HGB CONC 33.3 g/dl (32.0-36.5); MEAN CORPUSCULAR VOLUME 91.8 fl (80.0-96.0); MONO # 0.5 10^3/uL (0.0-0.8); MONO % 7.3 % (2.0-8.0); NEUTROPHILS # 4.3 10^3/uL (1.5-8.5); NEUTROPHILS % 67.7 % (36.0-66.0); PLATELET COUNT, AUTOMATED 215 10^3/uL (150-450); RED BLOOD COUNT 4.39 10^6/uL (4.00-5.40); WHITE BLOOD COUNT 6.3 10^3/uL (4.0-10.0)
[2024-07-31 15:27] LABS: ERYTHROCYTE SEDIMENTATION RATE 9 mm/hr (0-30)
[2024-07-31 15:42] LABS: C REACTIVE PROTEIN QUANTITATIV < 0.40 MG/DL (<1.0)
[2024-07-31 15:43] LABS: ALBUMIN 3.8 G/DL (3.2-5.2); ALKALINE PHOSPHATASE 91 U/L (46-116); ALT/SGPT 11 U/L (7.0-40); AST/SGOT 10 U/L (<34); BILIRUBIN,TOTAL 0.4 MG/DL (0.3-1.2); BLOOD UREA NITROGEN 18 MG/DL (9-23); CALCIUM LEVEL 9.3 MG/DL (8.3-10.6); CARBON DIOXIDE LEVEL 27 MMOL/L (20-31); CHLORIDE LEVEL 110 MMOL/L (98-107); CREATININE FOR GFR 1.06 MG/DL (0.55-1.30); GLOMERULAR FILTRATION RATE 53.7 (>39); GLUCOSE, FASTING 122 MG/DL (74-106); POTASSIUM SERUM 4.2 MMOL/L (3.5-5.1); SODIUM LEVEL 142 MMOL/L (136-145); TOTAL PROTEIN 6.6 G/DL (5.7-8.2)
[2024-07-31 15:44] LABS: THYROID STIMULATING HORMONE 1.951 uIU/ML (0.55-4.78)
[2024-07-31 15:45] LABS: FOLATE > 24.00 NG/ML (>5.4); FREE T4 1.21 NG/DL (0.89-1.76); VITAMIN B12 LEVEL 560 PG/ML (211-911)
[2024-08-04 23:32] LABS: LYME TOTAL ANTIBODY CIA <= 0.90 Index (<=0.90)
[2024-08-06 15:47] LABS: NICOTINAMIDE < 20 ng/mL (see note); NICOTINIC ACID < 20 ng/mL (see note)
[2024-08-07 14:12] LABS: VITAMIN B6,PYRIDOXAL PHOSPHATE 32.2 ng/mL (2.1-21.7)
== END ==
LOC: M LAB 14:32
PROVIDERS: ATTEND Physician Assistant
DX: R53.83 Other fatigue (principal); R41.3 Other amnesia

== ENCOUNTER → 2024-10-08 | Outpatient (CLI) | payer MEDICARE ==
[~2024-10-08] MED LIST changes: -AZEL0.1S NARES; +AZEL137S8 NARES
== END ==
LOC: M PLAIMG 12:52
PROVIDERS: ATTEND Physician Assistant
DX: Z53.9 Procedure and treatment not carried out, unspecified reason (principal)

== ENCOUNTER → 2025-01-30 | Outpatient (REF) | payer MEDICARE | LOC: M LAB REF 17:00 | PROVIDERS: ATTEND Physician Assistant | DX: J20.9 Acute bronchitis, unspecified (principal) ==

== ENCOUNTER → 2025-02-21 | Outpatient (CLI) | payer MEDICARE | LOC: M WHC 11:27 | PROVIDERS: ATTEND Physician Assistant | DX: Z12.31 Encounter for screening mammogram for malignant neoplasm of breast (principal); R92.332 Mammographic heterogeneous density, left breast ==

== ENCOUNTER 2025-08-03 11:21 | Observation (INO) | payer MEDICARE ==
[~2025-08-03] VITALS: Ht 154.9 cm; Wt 68.2 kg
[2025-08-03 11:30] VITALS: TEMP 96.9
[2025-08-03 12:04] LABS: BASO # 0.0 10^3/uL (0.0-0.2); BASO % 0.8 % (0.0-1.0); EOS # 0.1 10^3/uL (0.0-0.5); EOS % 1.4 % (0.0-3.0); LYMPH # 1.1 10^3/uL (1.5-5.0); LYMPH % 22.3 % (24.0-44.0); MONO # 0.3 10^3/uL (0.0-0.8); MONO % 6.3 % (2.0-8.0); NEUTROPHILS # 3.5 10^3/uL (1.5-8.5); NEUTROPHILS % 69.0 % (36.0-66.0); PLATELET COUNT, AUTOMATED 227 10^3/uL (150-450)
[2025-08-03 12:06] VITALS: O2SAT 95
[2025-08-03 12:07] VITALS: BP 120/59
[2025-08-03 12:32] LABS: ALT/SGPT 15.0 U/L (7.0-40); AST/SGOT 19.0 U/L (<34); CALCIUM LEVEL 9.1 MG/DL (8.3-10.6); CARBON DIOXIDE LEVEL 23.0 MMOL/L (20-31); CHLORIDE LEVEL 109.0 MMOL/L (98-107); CREATININE FOR GFR 1.14 MG/DL (0.55-1.30); GLOMERULAR FILTRATION RATE 49.6 (>39); POTASSIUM SERUM 4.5 MMOL/L (3.5-5.1); SODIUM LEVEL 145.0 MMOL/L (136-145)
[2025-08-03 13:27] LABS: MAGNESIUM LEVEL 2.1 MG/DL (1.8-2.4)
[2025-08-03 13:34] LABS: KETONE, URINE AUTO RFX NEGATIVE (NEGATIVE); LEUKOCYTE ESTERASE UR AUTO RFX TRACE (NEGATIVE); MUCUS, URINE RFX SMALL (NEGATIVE); NITRITE, URINE AUTO RFX NEGATIVE (NEGATIVE); RBC, URINE AUTO RFX 0 /HPF (0-3); SQUAM EPITHELIAL CELL UR AURFX 1 /HPF (0-6); WBC, URINE AUTO RFX 1 /HPF (0-3)
[2025-08-03] MEDS ORDERED: OLANZapine INTRAMUSCULAR 10MG VIAL IM PRN (14:40)
[2025-08-03] MEDS ORDERED: OLANZapine ORAL DISINTEGRATING TAB 5MG PO PRN (14:40)
[2025-08-03] MEDS ORDERED: traZODone 50 MG TAB PO PRN (14:45)
[2025-08-03] MEDS ORDERED: ACETAMINOPHEN 325 MG TAB PO PRN (14:45)
[2025-08-03] MEDS ORDERED: SENNOSIDES/DOCUSATE SODIUM 8.6 MG/50MG TAB PO PRN (14:45)
[2025-08-03] MEDS ORDERED: PRAV80TA75 PO (15:46)
[2025-08-03] MEDS ORDERED: MEMA10TA PO (15:46)
[2025-08-03] MEDS ORDERED: IRBE150T27 PO (15:46)
[2025-08-03] MEDS ORDERED: RISP-105 PO (15:46)
[2025-08-03] MEDS ORDERED: HOME MED LIST COMPLETE! XX SCH (15:50)
[2025-08-03] MEDS ORDERED: QUEtiapine FUMARATE 12.5 MG HALF-TAB PO SCH (21:00)
[2025-08-04] MEDS ORDERED: FLUZONE HIGH DOSE (65+) 0.5 ML SYRINGE (25-26) IM.IMMUN ONE (09:00)
[2025-08-04] MEDS ORDERED: SERTRALINE HCL 50 MG TAB PO SCH (09:00)
== END 2025-08-03 17:13 | disposition home or self-care (01) ==
LOC: M ED 11:21 → M ED INP 11:22
PROVIDERS: ADMIT General Practice; ATTEND General Practice
DX: G31.83 Neurocognitive disorder with Lewy bodies (principal); F02.818 Dementia in other diseases classified elsewhere, unspecified severity, with other behavioral disturbance; I10 Essential (primary) hypertension; E78.5 Hyperlipidemia, unspecified; F32.A Depression, unspecified; F41.9 Anxiety disorder, unspecified; M81.0 Age-related osteoporosis without current pathological fracture; Z74.1 Need for assistance with personal care; Z79.899 Other long term (current) drug therapy; J30.2 Other seasonal allergic rhinitis
CPT/HCPCS: 71045; 80048; 80076; 81001; 83735; 84443; 85025; 87086; 87486; 87581; 87633; 87798; 93005; 93041; 94760; 99284; G0378

== ENCOUNTER 2025-08-24 15:21 | Inpatient (IN) | payer MEDICARE ==
[~2025-08-24] VITALS: Ht 158.8 cm; Wt 67.3 kg
[~2025-08-24 15:21] MED LIST changes: +IRBE150T27 PO; +MEMA10TA PO; +PRAV80TA75 PO; +RISP-105 PO
[2025-08-24] MEDS: NS (Normal Saline) 0.9% 1,000 ML IV SCH (15:56)
[2025-08-24] MEDS: NS 500 ML IV ONE (15:57)
[2025-08-24 16:03] LABS: SP GRAVITY,URINE MANUAL REFLEX 1.020 (1.002-1.035)
[2025-08-24 16:04] LABS: KETONE, URINE MANUAL REFLEX NEGATIVE (NEGATIVE); NITRITE, URINE MANUAL RFX NEGATIVE (NEGATIVE); PROTEIN, URINE MANUAL REFLEX TRACE mg/dL (NEGATIVE); UROBILINOGEN, UA MANUAL REFLEX NORMAL (NORMAL)
[2025-08-24 16:07] LABS: RBC, URINE MAN REFLEX NONE SEEN /hpf (0-3); RENAL EPITHELIAL, URINE RFX SMALL AMOUNT /hpf; SQUAMOUS EPITHELIAL URINE RFX NONE SEEN /hpf (SMALL AMT); WBC, URINE MAN RFX NONE SEEN /hpf (0-3)
[2025-08-24 16:08] LABS: MICROSCOPIC EXAM RFX UNSPUN
[2025-08-24 16:09] LABS: BASO # 0.0 10^3/uL (0.0-0.2); BASO % 0.5 % (0.0-1.0); EOS # 0.0 10^3/uL (0.0-0.5); EOS % 0.3 % (0.0-3.0); LYMPH # 1.3 10^3/uL (1.5-5.0); LYMPH % 14.7 % (24.0-44.0); MONO # 0.6 10^3/uL (0.0-0.8); MONO % 7.2 % (2.0-8.0); NEUTROPHILS # 6.7 10^3/uL (1.5-8.5); NEUTROPHILS % 77.0 % (36.0-66.0); PLATELET COUNT, AUTOMATED 207 10^3/uL (150-450)
[2025-08-24 16:33] LABS: ALT/SGPT 17.0 U/L (7.0-40); AST/SGOT 29.0 U/L (<34); CALCIUM LEVEL 9.2 MG/DL (8.3-10.6); CARBON DIOXIDE LEVEL 23.0 MMOL/L (20-31); CHLORIDE LEVEL 108.0 MMOL/L (98-107); CREATININE FOR GFR 2.41 MG/DL (0.55-1.30); GLOMERULAR FILTRATION RATE 20.2 (>39); POTASSIUM SERUM 4.0 MMOL/L (3.5-5.1); SODIUM LEVEL 144.0 MMOL/L (136-145)
[2025-08-24] MEDS ORDERED: ZOLO100T PO (18:23)
[2025-08-24] MEDS ORDERED: RISP-106 PO (18:23)
[2025-08-24] MEDS ORDERED: HOME MED LIST COMPLETE! XX SCH (18:25)
[2025-08-24] MEDS ORDERED: MAALOX 30 ML SUSP *UDC PO PRN (18:30)
[2025-08-24] MEDS: NS (Normal Saline) 0.9% 1,000 ML IV ONE (18:32)
[2025-08-24 19:24] LABS: MAGNESIUM LEVEL 2.1 MG/DL (1.8-2.4)
[2025-08-24 19:25] LABS: CPK CREATINE PHOSPHOKINASE 317.0 U/L (34-145)
[2025-08-24 20:31] VITALS: BP 148/66; TEMP 97.1; O2SAT 98
[2025-08-24] MEDS: PRAVASTATIN 20 MG TAB PO SCH (20:56)
[2025-08-24] MEDS: MEMANTINE 5 MG TABLET PO SCH (20:57)
[2025-08-24] MEDS: HEPARIN SOD 5000 UNITS/ML 1 ML VIAL/SYRINGE SC SCH (20:58)
[2025-08-25 00:08] VITALS: BP 132/62; TEMP 97.2; O2SAT 95
[2025-08-25 04:30] VITALS: BP 122/58; TEMP 98.1; O2SAT 96
[2025-08-25 07:40] LABS: CALCIUM LEVEL 8.3 MG/DL (8.3-10.6); CARBON DIOXIDE LEVEL 22.0 MMOL/L (20-31); CHLORIDE LEVEL 114.0 MMOL/L (98-107); CREATININE FOR GFR 1.65 MG/DL (0.55-1.30); GLOMERULAR FILTRATION RATE 31.8 (>39); MAGNESIUM LEVEL 1.9 MG/DL (1.8-2.4); POTASSIUM SERUM 4.1 MMOL/L (3.5-5.1); SODIUM LEVEL 146.0 MMOL/L (136-145)
[2025-08-25 07:58] VITALS: BP 121/60; TEMP 97.2; O2SAT 97
[2025-08-25] MEDS: SERTRALINE 100 MG TAB PO SCH (11:07)
[2025-08-25 12:00] VITALS: BP 141/64; TEMP 97.6; O2SAT 96
[2025-08-25] MEDS: ALPRAZolam 0.5 MG TAB PO PRN (12:00)
[2025-08-25 16:13] VITALS: BP 123/57; TEMP 97.1; O2SAT 95
[2025-08-26] VITALS (7 sets, daily range): BP systolic 116–148; BP diastolic 58–71; TEMP 97–97.5; O2SAT 9–97
[2025-08-26 05:49] LABS: ESTIMATED AVERAGE GLUCOSE 105.0 MG/DL (60-110)
[2025-08-26 05:53] LABS: CHOLESTEROL LEVEL 138.0 MG/DL (<200); CHOLESTEROL RISK RATIO 2.56 (<5); LDL CHOLESTEROL 58.6 MG/DL (<100); NON-HDL-C 84.2 MG/DL; TRIGLYCERIDES LEVEL 128.0 MG/DL (<150)
[2025-08-26 07:39] LABS: CALCIUM LEVEL 8.5 MG/DL (8.3-10.6); CARBON DIOXIDE LEVEL 21.0 MMOL/L (20-31); CHLORIDE LEVEL 111.0 MMOL/L (98-107); CREATININE FOR GFR 1.31 MG/DL (0.55-1.30); GLOMERULAR FILTRATION RATE 42.0 (>39); MAGNESIUM LEVEL 1.7 MG/DL (1.8-2.4); POTASSIUM SERUM 4.0 MMOL/L (3.5-5.1); SODIUM LEVEL 144.0 MMOL/L (136-145)
[2025-08-26] MEDS: ASPIRIN 81 MG ENTERIC TABLET PO SCH (09:15)
[2025-08-26] MEDS: CLOPIDOGREL 75 MG TAB PO SCH (09:16)
[2025-08-26] MEDS: MAG SULF 1GM/100ML (MAG RUN) 1 GM in IV 1 EA IV SCH (16:58)
[2025-08-27] VITALS (8 sets, daily range): BP systolic 120–142; BP diastolic 58–70; TEMP 96.9–97.7; O2SAT 94–97
[2025-08-27 06:10] LABS: CALCIUM LEVEL 8.4 MG/DL (8.3-10.6); CARBON DIOXIDE LEVEL 24.0 MMOL/L (20-31); CHLORIDE LEVEL 111.0 MMOL/L (98-107); CREATININE FOR GFR 1.32 MG/DL (0.55-1.30); GLOMERULAR FILTRATION RATE 41.6 (>39); MAGNESIUM LEVEL 2.3 MG/DL (1.8-2.4); POTASSIUM SERUM 4.4 MMOL/L (3.5-5.1); SODIUM LEVEL 145.0 MMOL/L (136-145)
[2025-08-28] VITALS: BP 135/65; TEMP 96.7; O2SAT 94
[2025-08-28 04:40] VITALS: BP 147/67; TEMP 97.7; O2SAT 96
[2025-08-28 04:58] LABS: PLATELET COUNT, AUTOMATED 186 10^3/uL (150-450)
[2025-08-28 05:23] LABS: CALCIUM LEVEL 8.9 MG/DL (8.3-10.6); CARBON DIOXIDE LEVEL 23.0 MMOL/L (20-31); CHLORIDE LEVEL 110.0 MMOL/L (98-107); CREATININE FOR GFR 1.09 MG/DL (0.55-1.30); GLOMERULAR FILTRATION RATE 52.3 (>39); POTASSIUM SERUM 4.2 MMOL/L (3.5-5.1); SODIUM LEVEL 145.0 MMOL/L (136-145)
[2025-08-28 07:45] VITALS: BP 142/88; TEMP 97.5; O2SAT 95
[2025-08-28 11:15] VITALS: BP 146/98; TEMP 97.5; O2SAT 95
[2025-08-28 15:51] VITALS: BP 128/62; TEMP 96.7; O2SAT 96
[2025-08-28 20:00] VITALS: BP 101/52; TEMP 97.1; O2SAT 96
[2025-08-29 00:29] VITALS: BP 119/64; TEMP 97.5; O2SAT 96
[2025-08-29 04:49] VITALS: BP 100/53; TEMP 98.1; O2SAT 96
[2025-08-29 07:26] VITALS: BP 145/67; TEMP 97.7; O2SAT 98
[2025-08-29 11:35] VITALS: BP 122/58; TEMP 98.4; O2SAT 95
[2025-08-29 16:00] VITALS: BP 112/53; TEMP 97.6; O2SAT 96
[2025-08-30 03:24] VITALS: BP 114/56; TEMP 97.1; O2SAT 97
[2025-08-30 07:57] VITALS: BP 119/59; TEMP 97.2; O2SAT 96
[2025-08-30 16:17] VITALS: BP 126/59; TEMP 97; O2SAT 97
[2025-08-30 20:56] VITALS: BP 114/59; TEMP 98; O2SAT 97
[2025-08-31 07:08] VITALS: BP 128/63; TEMP 97.6; O2SAT 96
[2025-08-31 16:50] VITALS: BP 127/61; TEMP 98; O2SAT 96
[2025-09-01 03:16] VITALS: BP 139/72; TEMP 97; O2SAT 94
[2025-09-02] MEDS: ACETAMINOPHEN 325 MG TAB PO PRN (02:25)
[2025-09-02 11:00] VITALS: BP 130/89; TEMP 97.5; O2SAT 97
[2025-09-03 06:19] VITALS: BP 109/54; TEMP 97.7; O2SAT 96
[2025-09-03 08:31] VITALS: BP 122/62
[2025-09-04 03:41] VITALS: BP 128/69; TEMP 97; O2SAT 94
[2025-09-04 12:00] VITALS: BP 139/68; TEMP 97.7; O2SAT 97
[2025-09-05 03:54] VITALS: BP 110/55; TEMP 98.2; O2SAT 96
[2025-09-05 19:54] VITALS: BP 123/57; TEMP 98.3; O2SAT 96
[2025-09-07 04:02] VITALS: BP 114/55; TEMP 97.6; O2SAT 95
[2025-09-07 23:00] VITALS: TEMP 99.3
[2025-09-08 02:24] VITALS: BP 126/70; TEMP 98.8; O2SAT 94
[2025-09-09 04:15] VITALS: BP 147/72; TEMP 98; O2SAT 95
[2025-09-09] MEDS: MOM 30 ML SUSPENSION UDC PO PRN (16:15)
[2025-09-09] MEDS: MIRALAX *UNIT DOSE* 17 GM PACKET PO SCH (20:59)
[2025-09-10 03:44] VITALS: BP 111/55; TEMP 98; O2SAT 97
[2025-09-11 04:00] VITALS: BP 132/62; TEMP 98; O2SAT 97
[2025-09-12 04:14] VITALS: BP 113/55; TEMP 98; O2SAT 97
[2025-09-13 04:08] VITALS: BP 121/60; TEMP 98; O2SAT 96
[2025-09-13 15:43] VITALS: BP 106/58; TEMP 98; O2SAT 95
[2025-09-14 03:05] VITALS: BP 148/68; TEMP 97.9; O2SAT 97
[2025-09-15 03:02] VITALS: BP 132/62; TEMP 97.6; O2SAT 94
[2025-09-16 04:02] VITALS: BP 132/62; TEMP 97.2; O2SAT 95
[2025-09-17 03:51] VITALS: BP 129/62; TEMP 97.3; O2SAT 97
[2025-09-18 06:32] VITALS: BP 122/59; TEMP 98; O2SAT 97
[2025-09-18] MEDS ORDERED: ASPI81CH33 PO (09:27)
== END 2025-09-18 11:17 | DRG 65 ==
LOC: M ED 15:21 → M ED INP 18:29 → M PCU 20:27 → M MSPAV 08-31 16:52
PROVIDERS: ADMIT Student in an Organized Health Care Education/Training Program; ATTEND Internal Medicine
DX: I63.9 Cerebral infarction, unspecified (principal); N17.9 Acute kidney failure, unspecified; E86.0 Dehydration; G31.83 Neurocognitive disorder with Lewy bodies; I10 Essential (primary) hypertension; E78.5 Hyperlipidemia, unspecified; F31.9 Bipolar disorder, unspecified; R53.81 Other malaise; M81.0 Age-related osteoporosis without current pathological fracture; R26.9 Unspecified abnormalities of gait and mobility; I95.9 Hypotension, unspecified; R55 Syncope and collapse; F02.80 Dementia in other diseases classified elsewhere, unspecified severity, without behavioral disturbance, psychotic disturbance, mood disturbance, and anxiety; F41.9 Anxiety disorder, unspecified; Z79.899 Other long term (current) drug therapy; Z88.8 Allergy status to other drugs, medicaments and biological substances; K59.00 Constipation, unspecified

== ENCOUNTER → 2025-09-25 | Outpatient (REF) | payer MEDICARE ==
[~2025-09-25] MED LIST changes: +ASPI81CH33 PO; +RISP-106 PO; +RISP-39 PO; -RISP3TAB20 PO; +ZOLO100T PO
== END ==
LOC: SKLAB6 10:37
PROVIDERS: ATTEND Family Medicine
DX: Z11.2 Encounter for screening for other bacterial diseases (principal); Z20.818 Contact with and (suspected) exposure to other bacterial communicable diseases